=== PATIENT | female | born 1990 | race Two or more races ===

== ENCOUNTER 2024-03-26 13:42 | Emergency (ER) | payer OTHER ==
[~2024-03-26] VITALS: Ht 165.1 cm; Wt 58.1 kg
[2024-03-26] MEDS ORDERED: ZOFRAN8 MG (14:18)
[2024-03-26] MEDS ORDERED: PRENA1 TRUE CO1 EACH (14:19)
[2024-03-26 15:55] LABS: HEMATOCRIT 36.4 % (36.0-45.00); HEMOGLOBIN 12.7 g/dL (12.0-15.00); MEAN CELL VOLUME 92.1 fL (80.00-100.00); MEAN CORPUSCULAR HEMOGLOBIN 32.1 pg (27.00-32.0); MEAN CORPUSCULAR HGB CONC 34.9 g/dl (32.0-36.0); PLATELET COUNT 294 K/uL (150-450); RED BLOOD COUNT 3.96 M/uL (4.00-6.00); RED CELL DISTRIBUTION WIDTH 13.9 % (11.5-14.5)
[2024-03-26 16:23] LABS: PH,URINE 7.5 (5.0-8.0); URINE APPEARANCE Clear; URINE BILIRRUBIN Negative (NEGATIVE); URINE BLOOD Moderate; URINE COLOR Yellow; URINE GLUCOSE Negative (NEGATIVE); URINE KETONE Negative (NEGATIVE); URINE LEUKOCYTE Negative; URINE NITRATE Negative; URINE PROTEIN Negative (NEGATIVE); URINE UROBILINOGEN 0.2 E.U./dl
[2024-03-26 16:24] LABS: URINE BACTERIA 50.2 uL (0.0-1933); URINE EPITHELIAL CELLS 3.3 uL (0.0-38.8); URINE WBC 3.3 uL (0.0-23.2)
[2024-03-26 16:26] LABS: URINE RBC 1.2 uL (0.0-20.8)
[2024-03-26 16:32] LABS: CALCIUM 9.2 mg/dL (8.5-10.1); CREATININE SERUM 0.44 mg/dL (0.55-1.02); GFR 165.71; POTASSIUM 3.66 mEq/L (3.5-5.1)
== END 2024-03-26 19:32 | disposition home or self-care (01) ==
LOC: ER 13:43
PROVIDERS: General Practice
DX: O26.851 Spotting complicating pregnancy, first trimester (principal); Z3A.12 12 weeks gestation of pregnancy

== ENCOUNTER 2024-09-26 13:15 | Inpatient (IN) | payer OTHER ==
[~2024-09-26] VITALS: Ht 165.1 cm; Wt 68.0 kg
[~2024-09-26 13:15] MED LIST: PRENA1 TRUE CO1 EACH; ZOFRAN8 MG
[2024-10-02 06:25] VITALS: BP 133/80
[2024-10-02] MEDS ORDERED: ECOTRIN81 MG PO (06:25)
[2024-10-02] MEDS ORDERED: RINGERS SOLUTION,LACTATED 1,000 ML IV SCH (07:15)
[2024-10-02] MEDS ORDERED: AMPICILLIN SODIUM 2,000 MG VIAL IV ONE (07:15)
[2024-10-02 07:31] LABS: HEMATOCRIT 42.1 % (36.0-45.00); HEMOGLOBIN 14.7 g/dL (12.0-15.00); MEAN CELL VOLUME 92.3 fL (80.00-100.00); MEAN CORPUSCULAR HEMOGLOBIN 32.2 pg (27.00-32.0); MEAN CORPUSCULAR HGB CONC 34.9 g/dl (32.0-36.0); PLATELET COUNT 323 K/uL (150-450); RED BLOOD COUNT 4.56 M/uL (4.00-6.00); RED CELL DISTRIBUTION WIDTH 14.7 % (11.5-14.5)
[2024-10-02 07:34] LABS: PH,URINE 6.5 (5.0-8.0); URINE APPEARANCE Cloudy; URINE BILIRRUBIN Negative (NEGATIVE); URINE BLOOD Negative; URINE COLOR Yellow; URINE GLUCOSE Negative (NEGATIVE); URINE KETONE Negative (NEGATIVE); URINE LEUKOCYTE Moderate; URINE NITRATE Negative; URINE PROTEIN Negative (NEGATIVE); URINE UROBILINOGEN 0.2 E.U./dl
[2024-10-02 07:39] LABS: URINE BACTERIA 3162.6 uL (0.0-1933); URINE EPITHELIAL CELLS 146.9 uL (0.0-38.8); URINE RBC 2.2 uL (0.0-20.8); URINE WBC 260.4 uL (0.0-23.2)
[2024-10-02 07:46] LABS: URINE CAST 0.58 uL (0.0-1.40)
[2024-10-02 07:53] LABS: INR < 0.93; PARTIAL THROMBOPLASTIN TIME 30.1 SECONDS (22.0-34.0); PROTHROMBIN TIME 10.1 SECONDS (9.0-11.5)
[2024-10-02 08:19] LABS: ALBUMIN 3.4 gm/dL (3.4-5.0); BILIRUBIN TOTAL 0.35 mg/dL (0.3-1.2); CALCIUM 9.9 mg/dL (8.5-10.1); CREATININE SERUM 0.52 mg/dL (0.55-1.02); GFR 136.65; GLOBULINA 4.6 G/DL (2.4-3.5); POTASSIUM 3.74 mEq/L (3.5-5.1)
[2024-10-02] MEDS ORDERED: OXYTOCIN 20 UNITS/500ML RL PIGGYBAG IV ONE (09:13)
[2024-10-02] MEDS ORDERED: OXYTOCIN 500 ML IV SCH (09:15)
[2024-10-02 11:42] VITALS: BP 132/74
[2024-10-02] MEDS ORDERED: AMPICILLIN SODIUM 1,000 MG VIAL IV SCH (12:00)
[2024-10-02] MEDS ORDERED: ERYTHROMYCIN BASE OPHT 1GM EACH TUBE OP ONE (14:04)
[2024-10-02] MEDS ORDERED: OXYTOCIN 20 UNITS/1000ML RL PIGGYBAG IV ONE (14:04)
[2024-10-02] MEDS ORDERED: CHLORHEXIDINE GLUCONATE 120 ML BOTTLE TOP ONE (14:04)
[2024-10-02] MEDS ORDERED: LIDOCAINE HCL 1% 10ML VIAL ONE (14:05)
[2024-10-02 15:39] VITALS: BP 129/66
[2024-10-02 18:16] VITALS: BP 110/67
[2024-10-02] MEDS ORDERED: IBUprofen 600 MG TABLET PO SCH (20:00)
[2024-10-03] VITALS: BP 100/67
[2024-10-03 08:39] LABS: HEMATOCRIT 35.1 % (36.0-45.00); HEMOGLOBIN 11.9 g/dL (12.0-15.00); MEAN CELL VOLUME 93.8 fL (80.00-100.00); MEAN CORPUSCULAR HEMOGLOBIN 31.8 pg (27.00-32.0); MEAN CORPUSCULAR HGB CONC 33.9 g/dl (32.0-36.0); PLATELET COUNT 259 K/uL (150-450); RED BLOOD COUNT 3.74 M/uL (4.00-6.00); RED CELL DISTRIBUTION WIDTH 14.8 % (11.5-14.5)
[2024-10-03 08:47] VITALS: BP 100/64
[2024-10-03 12:08] VITALS: BP 110/72
[2024-10-03 16:00] VITALS: BP 105/69
[2024-10-04] VITALS: BP 106/66
[2024-10-04 09:12] VITALS: BP 121/85
== END 2024-10-04 11:55 | disposition home or self-care (01) | DRG 807 ==
LOC: LDR 10-02 05:31 → OB/GYN 10-02 05:31 → LDR 10-02 06:26 → OB/GYN 10-02 17:39 → LDR 10-05 13:15
PROVIDERS: Obstetrics & Gynecology; ADMIT Specialist; ATTEND Specialist
PROC: 10E0XZZ Delivery of Products of Conception, External Approach (ICD-10-PCS; principal; 2024-10-02)
PROC: 0KQM0ZZ Repair Perineum Muscle, Open Approach (ICD-10-PCS; 2024-10-02)
PROC: 4A1HXCZ Monitoring of Products of Conception, Cardiac Rate, External Approach (ICD-10-PCS; 2024-10-02)
DX: O70.1 Second degree perineal laceration during delivery (principal); Z37.0 Single live birth; O99.824 Streptococcus B carrier state complicating childbirth; Z3A.39 39 weeks gestation of pregnancy